=== PATIENT | male | born 1995 | race Caucasian/White ===

== ENCOUNTER 2020-11-16 02:23 | Emergency (ER) | payer OTHER ==
[2020-11-16 03:18] LABS: BARBITURATE SCREEN,URINE NEGATIVE (NEGATIVE); BENZODIAZEPINES SCREEN,URINE NEGATIVE (NEGATIVE); BUPRENORPHINE SCREEN,URINE NEGATIVE (NEGATIVE); METHAMPHETAMINE SCREEN, URINE NEGATIVE (NEGATIVE); THC SCREEN,URINE 50 NG/ML POSITIVE (NEGATIVE)
[2020-11-16 03:23] LABS: ANION GAP 16.2 mmol/L (5-15); CHLORIDE,CL 104 mmol/L (98-107); SODIUM,NA 143 mmol/L (136-145)
[2020-11-16] MEDS ORDERED: Acetaminophen 500 MG Tab PO ONE (03:31)
[2020-11-16] MEDS ORDERED: Diphtheria,Pertussis(Acell),Tetanus Vaccine 0.5 ML Syringe IM ONE (03:33)
== END 2020-11-16 03:57 | disposition home or self-care (01) ==
LOC: SUPCPDRO 02:23 → VM.ED 02:23
DX: S06.0X1A Concussion with loss of consciousness of 30 minutes or less, initial encounter (principal); S01.311A Laceration without foreign body of right ear, initial encounter; Z23 Encounter for immunization; Y04.2XXA Assault by strike against or bumped into by another person, initial encounter
CPT/HCPCS: 12013; 36415; 70450; 80048; 80305; 80307; 85025; 90471; 90715; 99285; A9270; 99283